=== PATIENT | male | born 1995 | race Two or more races ===

== ENCOUNTER 2019-04-17 18:18 | Emergency (ER) | payer OTHER, MEDICAID ==
[2019-04-17] MEDS: BELLADONNA/PHENOBARBITAL TAB PO (22:35)
[2019-04-17] MEDS: LIDOCAINE/MYLANTA 40 ML BTL PO (22:35)
[2019-04-17] MEDS: FAMOTIDINE 20 MG TAB PO (22:35)
== END 2019-04-17 22:47 | disposition home or self-care (01) ==
LOC: FTE 18:18
DX: K21.9 Gastro-esophageal reflux disease without esophagitis (principal); F17.210 Nicotine dependence, cigarettes, uncomplicated; H66.92 Otitis media, unspecified, left ear; H60.92 Unspecified otitis externa, left ear
CPT/HCPCS: 99283; Z7502